=== PATIENT | male | born 1970 | race Caucasian/White ===

== ENCOUNTER 2017-06-09 18:54 | Emergency (ER) | END 2017-06-09 21:44 | disposition home or self-care (01) ==

== ENCOUNTER 2018-06-06 07:07 | Emergency (ER) | payer MEDICAID ==
[~2018-06-06] VITALS: Ht 175.3 cm; Wt 90.8 kg
[~2018-06-06 07:07] MED LIST: ACET500C5 PO; ASPI-535; BACITUD TOP; LISI-471; MECL25TA2 PO
[2018-06-06 07:11] VITALS: Ht 175.3 cm; Wt 90.8 kg
[2018-06-06 10:03] VITALS: BP 119/87; PULSE 77; RESP 18
[2018-06-06] MEDS ORDERED: SIMV10TA PO (10:39)
[2018-06-06] MEDS ORDERED: LISI10TA2 PO (10:39)
--- NOTE | 2018-06-06 11:20 | ERD ---
ER Documentation Chief Complaint Chief Complaint tingling left arm, dizziness and high blood pressure @ home HPI 47-year-old gentleman history of hypertension who presents the emergency with a multitude of different complaints. The patient states that for approximately 24 hours he has felt nonspecific paresthesias over the entirety of his body with cramping in his bilateral hands worse to the left upper extremity. He describes no significant headache or neck pain. He did describe some mild chest discomfort that was nonspecific, nonexertional, nonpleuritic. Patient states that he is feeling somewhat better recently. He denies any exertional symptoms. No significant social stressors. ROS All systems reviewed and are negative except as per history of present illness. Medications Home Meds Reported Medications Lisinopril* (Lisinopril*) 10 Mg Tablet, 10 MG PO DAILY, #30 TAB 06/06/18 Simvastatin* (Zocor*) 10 Mg Tablet, 10 MG PO QHS, #30 TAB 06/06/18 Discontinued Reported Medications Lisinopril* (Lisinopril*) 20 Mg Tablet 08/13/15 Aspirin Ec (Aspir 81) 81 Mg Tablet. 08/13/15 Discontinued Scripts Bacitracin* (Bacitracin Oint (UD)*) 1 Applic Oint, 1 APPLIC TOP ONCE for 4 Days, PKT APPLY TO Prov:LARRY CADE MD 06/09/17 Acetaminophen* (Tylophen*) 500 Mg Capsule, 1 CAP PO Q6H PRN for PAIN AND OR ELEVATED TEMP, #20 CAP Prov:NAIMA CIFUENTES NP 08/13/15 Meclizine Hcl* (Antivert*) 25 Mg Tablet, 25 MG PO Q6H PRN for DIZZINESS, #20 TAB Prov:NAIMA CIFUENTES NP 08/13/15 Allergies Allergies: Coded Allergies: No Known Allergy (Unverified , 06/06/18) PMhx/Soc History of Surgery: Yes (lower back 2009) Hx Cardiac Disorders: Yes (htn, high cholesterol ) Hx Psychiatric Problems: No Hx Miscellaneous Medical Probl: No Hx Alcohol Use: Yes (occasional) Hx Substance Use: No Hx Tobacco Use: No Smoking Status: Never smoker FmHx Family History: No diabetes, No coronary disease Physical Exam Vitals Vital Signs Date Temp Pulse Resp B/P (MAP) Pulse Ox O2 O2 Flow FiO2 Time Delivery Rate 06/06/18 77 18 119/87 98 Room Air 10:03 (98) 06/06/18 53 18 119/78 99 Room Air 08:30 (92) 06/06/18 97.5 55 18 146/86 99 07:11 (106) Physical Exam General: Well developed, well nourished, no acute distress Head: Normocephalic, atraumatic. Eyes: Pupils equally reactive, EOM intact ENT: Moist mucous membranes Neck: Supple, no lymphadenopathy Respiratory: Lungs clear bilaterally, no distress Cardiovascular: RRR, no murmurs, rubs, or gallops Abdominal: Soft, non-tender, non-distended, no peritoneal signs : Deferred MSK: No edema, no unilateral swelling, 5/5 strength Neurologic: Alert and oriented, moving all extremities, normal speech, no focal weakness, no cerebellar signs Skin: No rash Psych: Normal mood Result Diagram: 06/06/18 0735 06/06/18 0735 Results 24 hrs Laboratory Tests Test 06/06/18 07:35 06/06/18 10:22 White Blood Count 6.9 10^3/ul Red Blood Count 4.79 10^6/ul Hemoglobin 14.8 g/dl Hematocrit 43.8 % Mean Corpuscular Volume 91.4 fl Mean Corpuscular Hemoglobin 30.9 pg Mean Corpuscular Hemoglobin Concent 33.8 g/dl Red Cell Distribution Width 13.2 % Platelet Count 210 10^3/UL Mean Platelet Volume 10.5 fl Immature Granulocytes % 0.100 % Neutrophils % 55.5 % Lymphocytes % 34.9 % Monocytes % 7.5 % Eosinophils % 1.4 % Basophils % 0.6 % Nucleated Red Blood Cells % 0.0 /100WBC Immature Granulocytes # 0.010 10^3/ul Neutrophils # 3.8 10^3/ul Lymphocytes # 2.4 10^3/ul Monocytes # 0.5 10^3/ul Eosinophils # 0.1 10^3/ul Basophils # 0.0 10^3/ul Nucleated Red Blood Cells # 0.0 10^3/ul Sodium Level 142 mmol/L Potassium Level 4.8 mmol/L Chloride Level 107 mmol/L Carbon Dioxide Level 28 mmol/L Anion Gap 7 Blood Urea Nitrogen 25 mg/dl Creatinine 0.83 mg/dl Est Glomerular Filtrat Rate mL/min > 60 mL/min Glucose Level 109 mg/dl Calcium Level 9.5 mg/dl Troponin I < 0.012 ng/ml < 0.012 ng/ml Procedures/MDM EKG, MONITORS, & DIAGNOSTIC IMAGING: EKG: I reviewed and interpreted a 12-lead EKG. Rhythm: Normal sinus rhythm ST Changes: No contiguous ST segment elevations T waves: No contiguous T wave inversions Impression: [No evidence of acute cardiac ischemia] Repeat EKG: EKG: I reviewed and interpreted a 12-lead EKG. Rhythm: Normal sinus rhythm ST Changes: No contiguous ST segment elevations T waves: No contiguous T wave inversions Impression: [No evidence of acute cardiac ischemia] Chest x-ray: I reviewed and interpreted a 1 view of the chest Mediastinum: No enlargement Cardiac silhouette: No cardiomegaly Airspace: Clear lung najera bilaterally without evidence of pneumothorax Bones: No evidence of fracture PROCEDURES: [None] LAB INTERPRETATION: Negative troponin x2 MEDICAL DECISION MAKING: The patient's history, physical exam and clinical presentation is very nonspecific without localizing symptoms. His presentation is potentially consistent with hypertensive urgency though his blood pressure here is normal. No signs or symptoms concerning for dissection. He has no migratory pain or pain to the middle of his back. He has a nonfocal exam and nonexertional symptoms. Low pretest probability for cardiac etiology. Based on the patient's clinical exam and history and risk factors, I have a much lower clinical concern for pulmonary embolism, acute aortic dissection, pneumothorax, pneumonia, cardiac tamponade HEART Score: Less than 3 MACE Rate: Less than 1.7% Shared Decision Making: We had a conversation regarding risk stratification, MACE rate, and the risks, benefits, alternatives of disposition planning options. Disposition planning: Serial troponin and outpatient follow-up ER COURSE: * Patient continues to be well-appearing in the emergency room setting. Patient does take daily aspirin and had aspirin earlier today. He denies any fevers chills or pleuritic pain. The patient had serial troponins that are negative. * Given that the patient remains well-appearing in the emergency room setting, low pretest probability and low risk profile, negative troponin x2 with observation for greater than 3 hours the patient can be safely discharged with outpatient follow-up. CONSULTATION: [None] DISPOSITION PLAN: The patient does not have an identifiable emergent medical condition that warrants inpatient hospitalization at this time. The patient is deemed safe for discharge with outpatient follow-up. We discussed follow up with the patient's primary care doctor within 24 to 48 hours as needed. We also discussed return to the emergency room for worsening symptoms or worsening condition. Outpatient referral: Cardiology referral via PMD as needed Discharge Medications: Continue daily aspirin Departure Diagnosis: Primary Impression: Paresthesia Additional Impression: Chest pain Chest pain type: unspecified Qualified Codes: R07.9 - Chest pain, unspecified Condition: Stable Patient Instructions: Chest Pain, Uncertain Cause, Paraesthesias Referrals: [facility] Usted se godoy hecho un examen mdico de control que le indica que no est en leoncio condicin que requiera tratamiento urgente en el Departamento de Emergencia. Un estudio ms profundo y el tratamiento de gregorio condicin pueden esperar sin ningn riesgo hasta que usted sea atendida/o en el consultorio de gregorio mdico o leoncio clnica. Es responsabilidad suya arreglar leoncio ewelina para el seguimiento del khloe. MANEJO DE CONDICIONES NO URGENTES EN EL FUTURO 1) Si usted tiene un mdico de atencin primaria: Usted debera llamar a gregorio mdico de atencin primaria antes de venir al departamento de emergencia. Despus de las horas de consultorio, gregorio doctor o gregorio asociado/a est disponible por telfono. El mdico o enfermero de hari en el servicio telefnico puede asesorarle por elisa medio para atender el problema, o khloe contrario se puede programar leoncio ewelina. 2) Si usted no tiene un mdico de atencin primaria: Llame al mdico o clnica de referencia que aparece abajo trish las horas de consultorio para hacer leoncio ewelina para que le vean. CLINICAS: [facility] 155 [phone] [id number] [facility] 558 [phone] [address] [facility] 193 [phone] [facility] [phone] [place] [id number] [phone] [facility]. [phone] [address] [facility]. [facility] () Usted se godoy hecho un examen mdico de control que le indica que no est en leoncio condicin que requiera tratamiento urgente en el Departamento de Emergencia. Un estudio ms profundo y el tratamiento de gregorio condicin pueden esperar sin ningn riesgo hasta que usted sea atendida/o en el consultorio de gregorio mdico o leoncio cln ica. Es responsabilidad suya arreglar leoncio ewelina para el seguimiento del khloe. MANEJO DE CONDICIONES NO URGENTES EN EL FUTURO 1) Si usted tiene un mdico de atencin primaria: Usted debera llamar a gregorio mdico de atencin primaria antes de venir al departamento de emergencia. Despus de las horas de consultorio, gregorio doctor o gregorio asociado/a est disponible por telfono. El mdico o enfermero de hari en el servicio telefnico puede asesorarle por elisa medio para atender el problema, o khloe contrario se puede programar leoncio ewelina. 2) Si usted no tiene un mdico de atencin primaria: Llame al mdico o condado institucions de referencia que aparece abajo trish las horas de consultorio para hacer leoncio ewelina para que le vean. SI USTED NO PUEDE PAGAR PARA SALONI UN MEDICO puede ir a: [facility] [address] [place] [address] [facility] [address] [place] [address] [facility] [address] [place] [address] [facility] [address] [address] Additional Instructions: Llame al doctor nombrado abajo (Referral Sources) MAANA y mikey leoncio EWELINA PARA DENTRO DE LEONCIO SEMANA. Dgale a la secretaria que nosotros le instruimos hacer esta ewelina.Avise o llame si gregorio condicin se empeora antes de la ewelina. KAIDEN CURRAN MD Jun 06, 2018 11:20
== END 2018-06-06 11:33 | disposition home or self-care (01) ==
LOC: E/R 07:07
DX: R20.2 Paresthesia of skin (principal); R07.9 Chest pain, unspecified; I10 Essential (primary) hypertension
CPT/HCPCS: 36415; 71045; 80048; 84484; 85025; 93005; Z7502

== ENCOUNTER 2018-06-30 02:18 | Inpatient (IN) | payer MEDICAID ==
[~2018-06-30] VITALS: Ht 177.8 cm; Wt 86.4 kg
[~2018-06-30 02:18] MED LIST changes: -ACET500C5 PO; -ASPI-535; -BACITUD TOP; -LISI-471; +LISI10TA2 PO; -MECL25TA2 PO; +SIMV10TA PO
[2018-06-30] MEDS ORDERED: SOD CHLORIDE 0.9% 1,000 ML IV STA (03:25)
--- NOTE | 2018-06-30 03:41 | ERD ---
ER Documentation Chief Complaint Chief Complaint CP, SOB, L ARM NUMBNESS, DIAPHARETIC X'S 1 HOUR HPI 47-year-old male who presents to the emergency room complaining of syncope. History is provided by patient. He states that he got up to go to the bathroom at night. He states that after the bathroom he started to walk in the hallway and started to have generalized weakness and collapsed to the ground with possible LOC. He denies head trauma or. He states that he got up and took several steps and had another collapse that was very similar without significant prodrome. Positive LOC. No head trauma. The patient has had approximately 1 to 2 weeks of mild epigastric abdominal discomfort. He denies any chest pain or pressure. No prodrome of headache chest pain or shortness of breath. Patient had an episode of diaphoresis after this event that is now resolved. Patient has no complaints currently. ROS All systems reviewed and are negative except as per history of present illness. Medications Home Meds Reported Medications Lisinopril* (Lisinopril*) 10 Mg Tablet, 10 MG PO DAILY, #30 TAB 06/06/18 Simvastatin* (Zocor*) 10 Mg Tablet, 10 MG PO QHS, #30 TAB 06/06/18 Allergies Allergies: Coded Allergies: No Known Allergy (Unverified , 06/06/18) PMhx/Soc History of Surgery: Yes (lower back 2009) Hx Cardiac Disorders: Yes (htn, high cholesterol ) Hx Psychiatric Problems: No Hx Miscellaneous Medical Probl: No Hx Alcohol Use: Yes (occasional) Hx Substance Use: No Hx Tobacco Use: No Smoking Status: Never smoker FmHx Family History: No diabetes Physical Exam Vitals Vital Signs Date Temp Pulse Resp B/P (MAP) Pulse Ox O2 O2 Flow FiO2 Time Delivery Rate 06/30/18 96.7 70 22 113/66 100 Room Air 03:38 (82) 06/30/18 96.7 72 22 108/72 100 02:23 (84) Physical Exam General: Well developed, well nourished, no acute distress Head: Normocephalic, atraumatic. Eyes: Pupils equally reactive, EOM intact ENT: Moist mucous membranes Neck: Supple, no lymphadenopathy Respiratory: Lungs clear bilaterally, no distress Cardiovascular: RRR, no murmurs, rubs, or gallops Abdominal: Soft, non-tender, non-distended, no peritoneal signs : Deferred MSK: No edema, no unilateral swelling, 5/5 strength Neurologic: Alert and oriented, moving all extremities, normal speech, no focal weakness, no cerebellar signs Skin: No rash Psych: Normal mood Result Diagram: 06/30/185 06/30/185 Results 24 hrs Laboratory Tests Test 06/30/18 03:35 White Blood Count 11.3 10^3/ul Red Blood Count 3.41 10^6/ul Hemoglobin 10.7 g/dl Hematocrit 31.8 % Mean Corpuscular Volume 93.3 fl Mean Corpuscular Hemoglobin 31.4 pg Mean Corpuscular Hemoglobin Concent 33.6 g/dl Red Cell Distribution Width 13.2 % Platelet Count 223 10^3/UL Mean Platelet Volume 11.1 fl Immature Granulocytes % 2.200 % Neutrophils % 66.4 % Lymphocytes % 22.9 % Monocytes % 7.6 % Eosinophils % 0.4 % Basophils % 0.5 % Nucleated Red Blood Cells % 0.2 /100WBC Immature Granulocytes # 0.250 10^3/ul Neutrophils # 7.5 10^3/ul Lymphocytes # 2.6 10^3/ul Monocytes # 0.9 10^3/ul Eosinophils # 0.1 10^3/ul Basophils # 0.1 10^3/ul Nucleated Red Blood Cells # 0.0 10^3/ul Sodium Level 138 mmol/L Potassium Level 4.2 mmol/L Chloride Level 107 mmol/L Carbon Dioxide Level 26 mmol/L Anion Gap 5 Blood Urea Nitrogen 65 mg/dl Creatinine 0.62 mg/dl Est Glomerular Filtrat Rate mL/min > 60 mL/min Glucose Level 136 mg/dl Calcium Level 9.0 mg/dl Troponin I < 0.012 ng/ml Current Medications Medications Dose Sig/Be Start Time Status Last (Trade) Ordered Route PRN Stop Time Admin Dose Reason Admin Sodium 1,000 ml @ Q1H STAT 06/30/18 DC 06/30/18 Chloride 1,000 mls/hr IV 03:25 06/30/18 03:41 04:24 IV Flush 3 ml PER 06/30/18 UNV (NS 3 ml) PROTOCOL IV 05:00 Ondansetron 4 mg Q6H PRN 06/30/18 UNV HCl (Zofran PO 05:00 Tab) NAUSEA/VOMITI NG 1 tab Q5M PRN 06/30/18 UNV Nitroglycerin SL .CHEST 05:00 PAIN (Nitroglyceri n (Sl Tab) 0.4 Mg) 650 mg Q6H PRN 06/30/18 UNV Acetaminophen PO .PAIN 1-3 05:00 (Tylenol OR TEMP Tab) Docusate 100 mg Q12H PRN 06/30/18 UNV Sodium PO 05:00 (Colace) .CONSTIPATION Bisacodyl 5 mg DAILY PRN 06/30/18 UNV (Dulcolax) PO 05:00 .CONSTIPATION Al 30 ml Q4H PRN 06/30/18 UNV Hydrox/Mg PO 05:00 Hydrox/Simeth GASTROINTESTI icone NAL UPSET (Mag-Al Plus) 40 mg DAILY@06 06/30/18 UNV Pantoprazole PO 06:00 (Protonix Tab) Procedures/MDM EKG, MONITORS, & DIAGNOSTIC IMAGING: EKG: I reviewed and interpreted a 12-lead EKG. Rhythm: Normal sinus rhythm ST Changes: No contiguous ST segment elevations T waves: No contiguous T wave inversions Impression: [No evidence of acute cardiac ischemia] Chest x-ray: I reviewed and interpreted a 1 view of the chest Mediastinum: No enlargement Cardiac silhouette: No cardiomegaly Airspace: Clear lung najera bilaterally without evidence of pneumothorax Bones: No evidence of fracture LAB INTERPRETATION: I reviewed the laboratory testing and it shows [no evidence of acute process] MEDICAL DECISION MAKING: The patient has 2 episodes of syncope of unclear etiology. It was not as if the patient had vasovagal response as he did not have significant straining related to bathroom use. The patient had an episode of diaphoresis. He does have some mild epigastric discomfort for 1 week, consider possible subacute GI bleed but no signs or symptoms concerning for melena hematemesis no risk factors of peptic ulcer disease. Patient's epigastric abdominal pain does not seem to be cardiac in nature. However, given the patient's repeat episode of syncope, with associated diaphoresis I would recommend hospitalization for further investigation. Patient is agreeable. No evidence of traumatic injury c linically. The patient does not have any sudden onset of pain or neurologic symptoms to be suggestive of dissection. CT of the chest not indicated. ER COURSE: * Patient continues to be well-appearing and asymptomatic in the emergency room setting. Troponin is negative. Laboratory testing is reassuring. CONSULTATION: [None] DISPOSITION PLAN: Telemetry admission for evaluation of syncope with no clear etiology Accepting care team and consultations: I discussed the current laboratory data, diagnostic imaging and emergency care provided. Admitting team: Dr. Wong Admitting team indication: Insurance directed Departure Diagnosis: Primary Impression: Syncope Syncope type: unspecified Qualified Codes: R55 - Syncope and collapse Additional Impressions: Epigastric abdominal pain Diaphoresis Condition: Stable KAIDEN CURRAN MD June 30, 2018 03:40
[2018-06-30] MEDS ORDERED: NACL 0.9% 3 ML SYG IV SCH (05:00)
[2018-06-30] MEDS ORDERED: BISACODYL (EC) 5 MG TAB PO PRN (05:00)
[2018-06-30] MEDS ORDERED: ONDANSETRON 4 MG TAB PO PRN (05:00)
[2018-06-30] MEDS ORDERED: AL HYDROX/MG HYDROX/SIMETH 30 ML CUP PO PRN (05:00)
[2018-06-30] MEDS ORDERED: DOCUSATE SODIUM 100 MG CAP PO PRN (05:00)
[2018-06-30] MEDS ORDERED: NITROGLYCERIN (SL) 0.4 MG TAB SL PRN (05:00)
[2018-06-30] MEDS ORDERED: ACETAMINOPHEN 325 MG TAB PO PRN (05:00)
[2018-06-30] MEDS ORDERED: PANTOPRAZOLE (EC) 40 MG TAB PO SCH (06:00)
--- NOTE | 2018-06-30 07:18 | HP ---
Date/Time of Note Date/Time of Note DATE: 06/30/18 TIME: 07:05 Assessment/Plan VTE Prophylaxis SCD applied (from Nsg): Yes Pharmacological prophylaxis: NA/contraindicated Pharm contraindication: low risk/ambulating Lines/Catheters IV Catheter Type (from Nrsg): Saline Lock Assessment/Plan Hospital Course This is a 47-year-old male being admitted to the telemetry floor for: #1 syncope: Cardiogenic versus neurocardiogenic versus situational syncope: Patient symptoms are highly suspicious for situational syncope brought on by intense epigastric pain. Given the fact that he does have symptoms of numbness of his left arm and diaphoresis and the fact that he did pass out we will assess for cardiac causes as well. We will check cardiac enzymes x3, the first was negative. We will check an echocardiogram. Carotid Doppler. Consider cardiology consultation. #2 epigastric pain: Suspect peptic ulcer disease. Patient does have a BUN of 65. He denies any GI bleeding. Will check a stool occult blood. Given that he does have tenderness to palpation I will check a CT of the abdomen and pelvis without contrast. Will consult GI. Will give a trial of p.o. Mylanta, IV Protonix #3 normocytic anemia: Patient's hemoglobin is 11, he does have an elevated BUN of 65 with a normal creatinine. There is concern for possible occult bleed. Will check a stool occult blood. #4 hypertension: Continue lisinopril #5 hyperlipidemia: Continue statin #6 DVT GI prophylaxis: SCDs, no GI prophylaxis indicated Further treatment strategy will be implemented as per the clinical course. Result Diagram: 06/30/18 0335 06/30/18 0335 Results 24hrs Laboratory Tests Test 06/30/18 03:35 White Blood Count 11.3 #H Red Blood Count 3.41 #L Hemoglobin 10.7 #L Hematocrit 31.8 #L Mean Corpuscular Volume 93.3 Mean Corpuscular Hemoglobin 31.4 Mean Corpuscular Hemoglobin Concent 33.6 Red Cell Distribution Width 13.2 Platelet Count 223 Mean Platelet Volume 11.1 H Immature Granulocytes % 2.200 H Neutrophils % 66.4 Lymphocytes % 22.9 Monocytes % 7.6 Eosinophils % 0.4 Basophils % 0.5 Nucleated Red Blood Cells % 0.2 H Immature Granulocytes # 0.250 H Neutrophils # 7.5 Lymphocytes # 2.6 Monocytes # 0.9 Eosinophils # 0.1 Basophils # 0.1 Nucleated Red Blood Cells # 0.0 Sodium Level 138 Potassium Level 4.2 Chloride Level 107 Carbon Dioxide Level 26 Anion Gap 5 Blood Urea Nitrogen 65 H Creatinine 0.62 Est Glomerular Filtrat Rate mL/min > 60 Glucose Level 136 Calcium Level 9.0 Troponin I < 0.012 HPI/ROS Admit Date/Time Admit Date/Time Hx of Present Illness Chief complaint: Abdominal pain x2 weeks, syncopal episode This is a 47-year-old male who presented to the emergency department after having 2 syncopal episodes. Patient reports that he has been dealing with abdominal pain ultimately 2 weeks. He stated that yesterday he got up to go to the bathroom and he ended up having severe abdominal pain and he ended up fainting. This episode happened to him twice last night. He states that both episodes occurred after he had abdominal pain. He points to his epigastric area for his pain is. He does report that when he has the epigastric pain he also f eels numbness in his left arm, but he denies any chest pain. Reports that he eats a lot of spicy foods and he does drink alcohol on occasion. He also eats fried foods. None allergies: NKDA Medications: Lisinopril, simvastatin ROS Const: As per HPI Eyes : No pain discharge or redness or change in visual acuity ENT: No pain, sore throat, congestion, congestion, dysphagia or discharge Respiratory: No shortness of breath, cough, sputum, wheezing, or pleuritic pain Cardiovascular: No chest pain, palpitation, PND, or edema GI : HPI Genitourinary: No dysuria, hematuria, flank pain , discharge or CVA tenderness Musculoskeletal: No joint pain, back pain, neck pain, restricted range of motion in neck or joints Skin: No rash, bruising or hives Neuro: As per HPI Endocrine: No polyuria, polydipsia, temperature intolerance Psych: No hallucination, depression, anxiety or suicidal ideation PMH/Family/Social Past Medical History Hypertension, hyperlipidemia Medications Current Medications IV Flush (NS 3 ml) 3 ml PER PROTOCOL IV ; Start 06/30/18 at 05:00 Ondansetron HCl (Zofran Tab) 4 mg Q6H PRN PO NAUSEA/VOMITING; Start 06/30/18 at 05:00 Nitroglycerin (Nitroglycerin (Sl Tab) 0.4 Mg) 1 tab Q5M PRN SL .CHEST PAIN; Start 06/30/18 at 05:00 Acetaminophen (Tylenol Tab) 650 mg Q6H PRN PO .PAIN 1-3 OR TEMP; Start 06/30/18 at 05:00 Docusate Sodium (Colace) 100 mg Q12H PRN PO .CONSTIPATION; Start 06/30/18 at 05:00 Bisacodyl (Dulcolax) 5 mg DAILY PRN PO .CONSTIPATION; Start 06/30/18 at 05:00 Al Hydrox/Mg Hydrox/Simethicone (Mag-Al Plus) 30 ml Q4H PRN PO GASTROINTESTINAL UPSET; Start 06/30/18 at 05:00 Pantoprazole (Protonix Tab) 40 mg DAILY@06 PO Last administered on 06/30/18at 05:43; Admin Dose 40 MG; Start 06/30/18 at 06:00 Coded Allergies: No Known Allergy (Unverified , 06/06/18) Past Surgical History Lumbar surgery Social History Alcohol Use: occasionally Smoking Status: Never smoker Drug Use: none Exam/Review of Systems Vital Signs Vitals Vital Signs Date Temp Pulse Resp B/P (MAP) Pulse Ox O2 O2 Flow FiO2 Time Delivery Rate 06/30/18 79 18 123/79 97 Room Air 06:21 (94) Mechanical Ventilator 06/30/18 96.7 03:38 Exam Exam General: Patient is a pleasant male currently lying in bed in no acute distress HEENT: Atraumatic, normocephalic. The pupils are equal, round and reactive. Extraocular motor are intact Neck: Supple with full range of motion. No rigidity or meningismus Chest: Nontender Lungs: Clear to auscultation bilaterally no crackles rales or wheezing Heart: Normal S1-S2, Regular rhythm and rate. No murmur, S3, or S4 Abdomen: Soft , tenderness to palpation at the epigastric region, bowel sounds are present. No guarding no rebound tenderness , No masses or organomegaly. No costovertebral temporal angle mass Extremities: Normal to inspection, no edema no cyanosis Neurologic: Normal mental status, speech normal, cranial nerves II through XII are intact, motor and sensory are intact, Additional Comments EKG Rhythm: Normal sinus rhythm ST Changes: No contiguous ST segment elevations T waves: No contiguous T wave inversions Impression: [No evidence of acute cardiac ischemia] PROCEDURE: Single view chest. CLINICAL INDICATION: Syncope TECHNIQUE: Single view of the chest was obtained COMPARISON: None FINDINGS: There is no airspace consolidation or focal infiltrate. No pleural effusion or pneumothorax. Cardiac silhouette and mediastinal contours are unremarkable. Pulmonary vasculature appears normal. Regional bones are grossly unremarkable. IMPRESSION: No evidence of active cardiopulmonary disease. RPTAT: [facility] Physician Rochelle Date Time Electronically viewed and signed by Physician Rochelle on 06/30/2018 03:56 xB/ CC: KAIDEN CURRAN MD [phone] HOLLIE GONZALEZ June 30, 2018 07:16
[2018-06-30] MEDS: LISINOPRIL 10 MG TAB PO SCH (09:35)
--- NOTE | 2018-06-30 14:45 | PN ---
Date/Time of Note Date/Time of Note DATE: 06/30/18 TIME: 14:43 Assessment/Plan VTE Prophylaxis SCD applied (from Nsg): Yes Pharmacological prophylaxis: NA/contraindicated Pharm contraindication: low risk/ambulating Lines/Catheters IV Catheter Type (from Nrsg): Saline Lock Assessment/Plan Hospital Course SUBJECTIVE: Continues to have some epigastric discomfort. OBJECTIVE: Physical Exam General: Adequately build 47-year-old male lying in bed in no apparent distress. HEENT: Normocephalic, atraumatic. Eyes: Anicteric sclerae, conjunctivae clear. ENT: Nasal septum midline, oral mucosa moist. Neck supple, no JVD noticed. Respiratory: Bilaterally clear breath sounds. No use of accessory muscles of respiration. No adventitious breath sounds. Cardiovascular: S1, S2 heard. Regular rate and rhythm Abdomen: Soft, nontender, and nondistended. Bowel sounds positive in all 4 quadrants. Genitourinary: Deferred. Extremities: No cyanosis, no clubbing, no edema. Peripheral pulses palpable. Neurologic: Cranial nerves II through XII grossly intact. The patient is awake, alert, and oriented. Skin: Normal skin turgor. No skin rashes. Labs & Vitals per chart ASSESSMENT & PLAN 47-year-old male with comorbidities including hypertension and dyslipidemia who came to the emergency room with epigastric pain and a syncopal episode. The patient was noticed to have normocytic anemia. The patient was admitted to inpatient setting for further treatment and evaluation. 1. Syncope. -Etiology unclear. -Probably contributed by underlying anemia. -Continue telemetry monitoring. -Carotid Doppler study negative for any hemodynamically significant stenosis. -Orthostatic vital signs. 2. Epigastric pain. -CT abdomen and pelvis negative for any acute findings other than stool filled colon. -Pending gastroenterology consult. 3. Normocytic anemia. -Etiology unclear. -Pending stool for OB. -Pending gastroenterology evaluation. 4. Essential hypertension. -Continue lisinopril. 5. Dyslipidemia. -Continue statins. -Fasting lipid panel satisfactory. 6. Fluids, electrolytes, and nutrition. -Clear liquid diet. 7. DVT prophylaxis. -Bilateral SCDs. 8. Plan. -Continue telemetry monitoring. -Await gastroenterology evaluation. The patient was seen in collaboration with Dr. Rain. Result Diagram: 06/30/18 0335 06/30/18 0335 Results 24hrs Laboratory Tests Test 06/30/18 03:35 06/30/18 08:35 06/30/18 13:55 White Blood Count 11.3 #H Red Blood Count 3.41 #L Hemoglobin 10.7 #L Hematocrit 31.8 #L Mean Corpuscular Volume 93.3 Mean Corpuscular Hemoglobin 31.4 Mean Corpuscular Hemoglobin Concent 33.6 Red Cell Distribution Width 13.2 Platelet Count 223 Mean Platelet Volume 11.1 H Immature Granulocytes % 2.200 H Neutrophils % 66.4 Lymphocytes % 22.9 Monocytes % 7.6 Eosinophils % 0.4 Basophils % 0.5 Nucleated Red Blood Cells % 0.2 H Immature Granulocytes # 0.250 H Neutrophils # 7.5 Lymphocytes # 2.6 Monocytes # 0.9 Eosinophils # 0.1 Basophils # 0.1 Nucleated Red Blood Cells # 0.0 Sodium Level 138 Potassium Level 4.2 Chloride Level 107 Carbon Dioxide Level 26 Anion Gap 5 Blood Urea Nitrogen 65 H Creatinine 0.62 Est Glomerular Filtrat Rate mL/min > 60 Glucose Level 136 Calcium Level 9.0 Troponin I < 0.012 < 0.012 < 0.012 Hemoglobin A1c 5.6 Creatine Kinase 31 29 Creatine Kinase Index 3.0 Pending Creatinine Kinase MB (Mass) 0.94 Pending Triglycerides Level 149 Cholesterol Level 137 LDL Cholesterol, Calculated 63 HDL Cholesterol 44 Cholesterol/HDL Ratio 3.1 Thyroid Stimulating Hormone (TSH) 0.711 Exam/Review of Systems Exam Vitals Vital Signs Date Temp Pulse Resp B/P (MAP) Pulse Ox O2 O2 Flow FiO2 Time Delivery Rate 06/30/18 61 16 112/58 97 Room Air 13:00 (76) 06/30/18 96.7 03:38 Results Results 24hrs Laboratory Tests Test 06/30/18 03:35 06/30/18 08:35 06/30/18 13:55 White Blood Count 11.3 #H Red Blood Count 3.41 #L Hemoglobin 10.7 #L Hematocrit 31.8 #L Mean Corpuscular Volume 93.3 Mean Corpuscular Hemoglobin 31.4 Mean Corpuscular Hemoglobin Concent 33.6 Red Cell Distribution Width 13.2 Platelet Count 223 Mean Platelet Volume 11.1 H Immature Granulocytes % 2.200 H Neutrophils % 66.4 Lymphocytes % 22.9 Monocytes % 7.6 Eosinophils % 0.4 Basophils % 0.5 Nucleated Red Blood Cells % 0.2 H Immature Granulocytes # 0.250 H Neutrophils # 7.5 Lymphocytes # 2.6 Monocytes # 0.9 Eosinophils # 0.1 Basophils # 0.1 Nucleated Red Blood Cells # 0.0 Sodium Level 138 Potassium Level 4.2 Chloride Level 107 Carbon Dioxide Level 26 Anion Gap 5 Blood Urea Nitrogen 65 H Creatinine 0.62 Est Glomerular Filtrat Rate mL/min > 60 Glucose Level 136 Calcium Level 9.0 Troponin I < 0.012 < 0.012 < 0.012 Hemoglobin A1c 5.6 Creatine Kinase 31 29 Creatine Kinase Index 3.0 Pending Creatinine Kinase MB (Mass) 0.94 Pending Triglycerides Level 149 Cholesterol Level 137 LDL Cholesterol, Calculated 63 HDL Cholesterol 44 Cholesterol/HDL Ratio 3.1 Thyroid Stimulating Hormone (TSH) 0.711 Medications Medication Current Medications IV Flush (NS 3 ml) 3 ml PER PROTOCOL IV ; Start 06/30/18 at 05:00 Ondansetron HCl (Zofran Tab) 4 mg Q6H PRN PO NAUSEA/VOMITING; Start 06/30/18 at 05:00 Nitroglycerin (Nitroglycerin (Sl Tab) 0.4 Mg) 1 tab Q5M PRN SL .CHEST PAIN; Start 06/30/18 at 05:00 Acetaminophen (Tylenol Tab) 650 mg Q6H PRN PO .PAIN 1-3 OR TEMP; Start 06/30/18 at 05:00 Docusate Sodium (Colace) 100 mg Q12H PRN PO .CONSTIPATION; Start 06/30/18 at 05:00 Bisacodyl (Dulcolax) 5 mg DAILY PRN PO .CONSTIPATION; Start 06/30/18 at 05:00 Al Hydrox/Mg Hydrox/Simethicone (Mag-Al Plus) 30 ml Q4H PRN PO GASTROINTESTINAL UPSET; Start 06/30/18 at 05:00 Lisinopril (Zestril) 10 mg DAILY PO Last administered on 06/30/18at 09:35; Admin Dose 10 MG; Start 06/30/18 at 09:00 Atorvastatin Calcium (Lipitor) 10 mg DAILY@21 PO ; Start 06/30/18 at 21:00 Pantoprazole (Protonix Iv) 40 mg DAILY@06 IV ; Start 07/01/18 at 06:00 DREA ARRIOLA NP June 30, 2018 14:45
--- NOTE | 2018-06-30 15:38 | CONS ---
Assessment/Plan Assessment/Plan Hospital Course (Demo Recall) Summary Assessment and Plan: Assessment: Normocytic anemia with elevated BUN Epigastric pain Melena Syncope to several episodes -Troponin x3- -Carotid Doppler study without significant reasons for syncope Dyslipidemia Plan: Continue PPI Clear liquid diet today NPO after 0800 07/01/18 EGD tomorrow Endoscopy - risks/benefits/alternatives/indications of procedure and sedation/anesthesia discussed with patient who states understanding and gives informed consent to proceed. Patient seen in collaboration with Dr. Negron CC: PAULA NEGRON MD ; Consultation Date/Type/Reason Admit Date/Time Date of Consultation: June 30, 2018 Type of Consult GI Reason for Consultation Epigastric pain, normocytic anemia Date/Time of Note DATE: 06/30/18 TIME: 15:34 Hx of Present Illness This is a 47-year-old male past medical history of high cholesterol who had x2 episodes of syncope resented to the hospital for further work-up. With initial lab values patient noted to have mild leukocytosis WBC 11.3, hemoglobin 10.7, hematocrit 31.8, MCV 93.3 with an elevated BUN of 65. Cardiac work-up has been ordered patient with negative cardiac enzymes and troponin x3- additionally a chest CT was obtained showing no evidence of active cardiopulmonary disease and a carotid Doppler study was completed showing no evidence of hemodynamically significant stenosis in the bilateral internal carotid arteries. Further evaluation patient states he did have melena noted today states he has been having epigastric pain on and off x1 week and he denies NSAID use, smoking cigarettes, or excessive alcohol use. Discussed plan for clear liquid diet today n.p.o. after 8 AM tomorrow to proceed with the EGD tomorrow afternoon. I reviewed risk/benefits of both procedure and sedation patient verbalized understanding is agreeable to move forward with EGD Review of Systems: A 12 system, review was conducted and is negative except as noted in the HPI or here. Past Medical History Home Meds Reported Medications Lisinopril* (Lisinopril*) 10 Mg Tablet, 10 MG PO DAILY, #30 TAB 06/06/18 Simvastatin* (Zocor*) 10 Mg Tablet, 10 MG PO QHS, #30 TAB 06/06/18 Medications Current Medications IV Flush (NS 3 ml) 3 ml PER PROTOCOL IV ; Start 06/30/18 at 05:00 Ondansetron HCl (Zofran Tab) 4 mg Q6H PRN PO NAUSEA/VOMITING; Start 06/30/18 at 05:00 Nitroglycerin (Nitroglycerin (Sl Tab) 0.4 Mg) 1 tab Q5M PRN SL .CHEST PAIN; Start 06/30/18 at 05:00 Acetaminophen (Tylenol Tab) 650 mg Q6H PRN PO .PAIN 1-3 OR TEMP; Start 06/30/18 at 05:00 Docusate Sodium (Colace) 100 mg Q12H PRN PO .CONSTIPATION; Start 06/30/18 at 05:00 Bisacodyl (Dulcolax) 5 mg DAILY PRN PO .CONSTIPATION; Start 06/30/18 at 05:00 Al Hydrox/Mg Hydrox/Simethicone (Mag-Al Plus) 30 ml Q4H PRN PO GASTROINTESTINAL UPSET; Start 06/30/18 at 05:00 Lisinopril (Zestril) 10 mg DAILY PO Last administered on 06/30/18at 09:35; Admin Dose 10 MG; Start 06/30/18 at 09:00 Atorvastatin Calcium (Lipitor) 10 mg DAILY@21 PO ; Start 06/30/18 at 21:00 Pantoprazole (Protonix Iv) 40 mg DAILY@06 IV ; Start 07/01/18 at 06:00 Allergies: Coded Allergies: No Known Allergy (Unverified , 06/06/18) Social History Alcohol Use: occasionally Smoking Status: Never smoker Drug Use: none Exam/Review of Systems Exam Vitals Vital Signs Date Temp Pulse Resp B/P (MAP) Pulse Ox O2 O2 Flow FiO2 Time Delivery Rate 06/30/18 96.7 66 16 107/62 97 Room Air 14:00 (77) Constitutional: alert, oriented Psych: no complaints, nl mood/affect Head: normocephalic, atraumatic Eyes: nl conjunctiva ENMT: nl external ears & nose, nl lips & teeth Neck: supple Respiratory: clear to auscultation, normal air movement Cardiovascular: regular rate and rhythm, nl pulses Gastrointestinal: soft, bowel sounds, tender (Epigastric) Musculoskeletal: nl extremities to inspection Extremities: normal pulses Results Result Diagram: 06/30/18 0335 06/30/18 0335 Results 24hrs Laboratory Tests Test 06/30/18 03:35 06/30/18 08:34 06/30/18 08:35 06/30/18 13:55 White Blood Count 11.3 #H Red Blood Count 3.41 #L Hemoglobin 10.7 #L Hematocrit 31.8 #L Mean Corpuscular Volume 93.3 Mean Corpuscular 31.4 Hemoglobin Mean Corpuscular 33.6 Hemoglobin Concent Red Cell Distribution 13.2 Width Platelet Count 223 Mean Platelet Volume 11.1 H Immature Granulocytes % 2.200 H Neutrophils % 66.4 Lymphocytes % 22.9 Monocytes % 7.6 Eosinophils % 0.4 Basophils % 0.5 Nucleated Red Blood 0.2 H Cells % Immature Granulocytes # 0.250 H Neutrophils # 7.5 Lymphocytes # 2.6 Monocytes # 0.9 Eosinophils # 0.1 Basophils # 0.1 Nucleated Red Blood 0.0 Cells # Sodium Level 138 Potassium Level 4.2 Chloride Level 107 Carbon Dioxide Level 26 Anion Gap 5 Blood Urea Nitrogen 65 H Creatinine 0.62 Est Glomerular Filtrat > 60 Rate mL/min Glucose Level 136 Calcium Level 9.0 Troponin I < 0.012 < 0.012 < 0.012 Iron Level 101 Total Iron Binding 286 Capacity Percent Iron Saturation 35 Hemoglobin A1c 5.6 Creatine Kinase 31 29 Creatine Kinase Index 3.0 2.6 Creatinine Kinase MB 0.94 0.75 (Mass) Triglycerides Level 149 Cholesterol Level 137 LDL Cholesterol, 63 Calculated HDL Cholesterol 44 Cholesterol/HDL Ratio 3.1 Thyroid Stimulating 0.711 Hormone (TSH) Medications Medication Current Medications IV Flush (NS 3 ml) 3 ml PER PROTOCOL IV ; Start 06/30/18 at 05:00 Ondansetron HCl (Zofran Tab) 4 mg Q6H PRN PO NAUSEA/VOMITING; Start 06/30/18 at 05:00 Nitroglycerin (Nitroglycerin (Sl Tab) 0.4 Mg) 1 tab Q5M PRN SL .CHEST PAIN; S tart 06/30/18 at 05:00 Acetaminophen (Tylenol Tab) 650 mg Q6H PRN PO .PAIN 1-3 OR TEMP; Start 06/30/18 at 05:00 Docusate Sodium (Colace) 100 mg Q12H PRN PO .CONSTIPATION; Start 06/30/18 at 05:00 Bisacodyl (Dulcolax) 5 mg DAILY PRN PO .CONSTIPATION; Start 06/30/18 at 05:00 Al Hydrox/Mg Hydrox/Simethicone (Mag-Al Plus) 30 ml Q4H PRN PO GASTROINTESTINAL UPSET; Start 06/30/18 at 05:00 Lisinopril (Zestril) 10 mg DAILY PO Last administered on 06/30/18at 09:35; Admin Dose 10 MG; Start 06/30/18 at 09:00 Atorvastatin Calcium (Lipitor) 10 mg DAILY@21 PO ; Start 06/30/18 at 21:00 Pantoprazole (Protonix Iv) 40 mg DAILY@06 IV ; Start 07/01/18 at 06:00 MATEO KELLY June 30, 2018 15:38
[2018-06-30 16:30] VITALS: PULSE 67
[2018-06-30 18:33] VITALS: Ht 177.8 cm; Wt 86.4 kg
[2018-06-30 18:35] VITALS: BP 103/64; PULSE 65; RESP 18
--- NOTE | 2018-06-30 18:38 | RADRPT ---
Echocardiogram Report Patient Name: Javier TOUREnt ID: [id number] : 1970 (47y 8m)Study Date: 06/30/2018 2:33:13 PM Gender: Chantalecession #: [id number] Tech: LE Location: Ref.Physician: HOLLIE GONZALEZ Height(Cm): BSA: Weight(Kg): Quality: GoodAccount #: Procedures: Echocardiographic Report: Transthoracic echocardiogram with complete 2D, M-Mode, and doppler examination. Indications: Syncope. Measurements: 2D/M Mode Doppler Measurement Value Normal Range Measurement Value Normal Range LVIDd 2D 5.2 [ 4.2 - 5.8 ] cm AV Mean Ramon 1.1 [ 70.0 - 90.0 ] cm/sec LVIDs 2D 3.5 [ 2.5 - 4.0 ] cm AV Mean PG 5.0 [ 2.0 - 4.0 ] mmHg LVPWd 2D 1.1 [ 0.6 - 1.0 ] cm AV Peak Ramon 1.5 [ 100.0 - 170.0 ] cm/sec IVSd 2D 1.1 [ 0.6 - 1.0 ] cm AV Peak PG 9.0 [ 2.0 - 9.0 ] mmHg EDV 2D 128.0 [ 62.0 - 150.0 ] ml AV VTI 28.1 cm ESV 2D 49.8 [ 21.0 - 61.0 ] ml LVOT Peak Ramon 1.1 [ 70.0 - 110.0 ] cm/sec EF 2D 61.1 [ 52.0 - 72.0 ] percent LVOT Peak PG 4.0 [ 2.0 - 6.0 ] mmHg LVOT Diam 2.1 [ 2.3 - 2.9 ] cm MV E Peak Ramon 0.6 [ 60.0 - 130.0 ] cm/sec MV A Peak Ramon 0.6 [ 100.0 - 120.0 ] cm/sec MV E/A 1.0 [ 0.8 - 1.5 ] ratio MV Decel Time 299 [ 104 - 258 ] msec Lat E` Ramon 0.1 [ 10.0 - 15.0 ] cm/sec Lateral E/E` 7.9 [ 1.0 - 2.0 ] ratio Med E` Ramon 0.1 cm/sec MV E/A 1.0 [ 0.8 - 1.5 ] ratio TR Peak Ramon 2.1 [ 100.0 - 280.0 ] cm/sec TR Peak PG 17.0 mmHg PV Peak Ramon 1.0 [ 40.0 - 80.0 ] cm/sec PV Peak PG 4.0 mmHg Findings: Left Ventricle: Normal left ventricular systolic function. Normal left ventricular cavity size. Normal left ventricular wall thickness. Ejection fraction is visually estimated at 60 %. Tissue Doppler/Mitral Doppler indices are consistent with pseudonormalization with mildly elevated left atrial pressure (Stage II diastolic dysfunction). Right Ventricle: Normal right ventricular size. Normal right ventricular systolic function. Left Atrium: The left atrium is normal in size. Right Atrium: The right atrium is normal in size. Mitral Valve: Normal appearance and function of the mitral valve with trace physiologic regurgitation. Aortic Valve: Normal appearance of the aortic valve. No significant aortic stenosis or insufficiency. Tricuspid Valve: Normal appearance of the tricuspid valve. There is trace tricuspid regurgitation. Pulmonic Valve: Normal pulmonic valve appearance. Pericardium: Normal pericardium with no significant pericardial effusion. Aorta: Normal aortic root. IVC: Normal size and normal respiratory collapse consistent with normal right atrial pressure. Conclusions: Normal left ventricular systolic function. Normal left ventricular cavity size. Normal left ventricular wall thickness. Ejection fraction is visually estimated at 60 %. Tissue Doppler/Mitral Doppler indices are consistent with pseudonormalization with mildly elevated left atrial pressure (Stage II diastolic dysfunction). Normal appearance and function of the mitral valve with trace physiologic regurgitation. Normal appearance of the tricuspid valve. There is trace tricuspid regurgitation. Electronically Signed By: Rinuk Sandoval 2018-06-30 18:37:27 PDT
[2018-06-30 20:00] VITALS: BP 102/56; RESP 18
[2018-06-30 20:40] VITALS: PULSE 67
[2018-06-30] MEDS ORDERED: NON-FORMULARY/PATIENT OWN MED (Simvastatin* (Zocor*) 10 MG) PO SCH (21:00)
[2018-06-30] MEDS: ATORVASTATIN 10 MG TAB PO SCH (21:04)
[2018-07-01] VITALS (15 sets, daily range): BP systolic 92–120; BP diastolic 54–73; PULSE 58–110; RESP 16–18
[2018-07-01] MEDS: PANTOPRAZOLE 40 MG INJ IV SCH (05:42)
--- NOTE | 2018-07-01 10:06 | PN ---
Date/Time of Note Date/Time of Note DATE: 07/01/18 TIME: 10:04 Assessment/Plan VTE Prophylaxis Risk score (from Ns)>0 risk: 2 SCD applied (from Ns): Yes Pharmacological prophylaxis: NA/contraindicated Pharm contraindication: low risk/ambulating Lines/Catheters IV [facility] Peripheral IV Assessment/Plan Hospital Course SUBJECTIVE: Continues to have some epigastric discomfort. OBJECTIVE: Physical Exam General: Adequately build 47-year-old male lying in bed in no apparent distress. HEENT: Normocephalic, atraumatic. Eyes: Anicteric sclerae, conjunctivae clear. ENT: Nasal septum midline, oral mucosa moist. Neck supple, no JVD noticed. Respiratory: Bilaterally clear breath sounds. No use of accessory muscles of respiration. No adventitious breath sounds. Cardiovascular: S1, S2 heard. Regular rate and rhythm Abdomen: Soft, nontender, and nondistended. Bowel sounds positive in all 4 quadrants. Genitourinary: Deferred. Extremities: No cyanosis, no clubbing, no edema. Peripheral pulses palpable. Neurologic: Cranial nerves II through XII grossly intact. The patient is awake, alert, and oriented. Skin: Normal skin turgor. No skin rashes. Labs & Vitals per chart ASSESSMENT & PLAN 47-year-old male with comorbidities including hypertension and dyslipidemia who came to the emergency room with epigastric pain and a syncopal episode. The patient was noticed to have normocytic anemia. The patient was admitted to in patient setting for further treatment and evaluation. 1. Syncope. -Etiology unclear. -Probably contributed by underlying anemia. -Continue telemetry monitoring. -Carotid Doppler study negative for any hemodynamically significant stenosis. -2D echocardiogram showing preserved left ventricular ejection fraction. -Orthostatic vital signs. 2. Epigastric pain. -CT abdomen and pelvis negative for any acute findings other than stool filled colon. -Gastroenterology following. -Plan for esophagogastroduodenoscopy today. 3. Normocytic anemia. -Etiology unclear. -Pending stool for OB. -Pending esophagogastroduodenoscopy. 4. Essential hypertension. -Continue lisinopril. 5. Dyslipidemia. -Continue statins. -Fasting lipid panel satisfactory. 6. Fluids, electrolytes, and nutrition. -Clear liquid diet. 7. DVT prophylaxis. -Bilateral SCDs. 8. Plan. -Continue telemetry monitoring. -Await esophagogastroduodenoscopy. The patient was seen in collaboration with Dr. Rain. Result Diagram: 07/01/18 0551 07/01/18 0551 Results 24hrs Laboratory Tests Test 06/30/18 13:55 07/01/18 05:51 Creatine Kinase 29 Creatine Kinase Index 2.6 Creatinine Kinase MB (Mass) 0.75 Troponin I < 0.012 White Blood Count 8.5 # Red Blood Count 2.93 L Hemoglobin 9.1 L Hematocrit 27.0 L Mean Corpuscular Volume 92.2 Mean Corpuscular Hemoglobin 31.1 Mean Corpuscular Hemoglobin Concent 33.7 Red Cell Distribution Width 13.8 Platelet Count 194 Mean Platelet Volume 10.6 H Immature Granulocytes % 1.400 H Neutrophils % 64.6 Lymphocytes % 27.1 Monocytes % 6.1 Eosinophils % 0.4 Basophils % 0.4 Nucleated Red Blood Cells % 0.0 Immature Granulocytes # 0.120 H Neutrophils # 5.5 Lymphocytes # 2.3 Monocytes # 0.5 Eosinophils # 0.0 Basophils # 0.0 Nucleated Red Blood Cells # 0.0 Prothrombin Time 13.1 Prothrombin Time Ratio 1.0 INR International Normalized Ratio 0.98 Activated Partial Thromboplast Time 23.0 Sodium Level 140 Potassium Level 4.4 Chloride Level 109 Carbon Dioxide Level 26 Anion Gap 5 Blood Urea Nitrogen 26 #H Creatinine 0.68 Est Glomerular Filtrat Rate mL/min > 60 Glucose Level 98 Calcium Level 9.1 Phosphorus Level 3.7 Magnesium Level 2.2 Total Bilirubin 0.6 Direct Bilirubin 0.00 Indirect Bilirubin 0.6 Aspartate Amino Transf (AST/SGOT) 21 Alanine Aminotransferase (ALT/SGPT) 34 Alkaline Phosphatase 49 Total Protein 5.7 L Albumin 3.2 L Globulin 2.50 Albumin/Globulin Ratio 1.28 Exam/Review of Systems Exam Vitals Vital Signs Date Temp Pulse Resp B/P (MAP) Pulse Ox O2 O2 Flow FiO2 Time Delivery Rate 07/01/18 64 08:18 07/01/18 98.7 17 105/57 98 Room Air 07:39 (73) Results Results 24hrs Laboratory Tests Test 06/30/18 13:55 07/01/18 05:51 Creatine Kinase 29 Creatine Kinase Index 2.6 Creatinine Kinase MB (Mass) 0.75 Troponin I < 0.012 White Blood Count 8.5 # Red Blood Count 2.93 L Hemoglobin 9.1 L Hematocrit 27.0 L Mean Corpuscular Volume 92.2 Mean Corpuscular Hemoglobin 31.1 Mean Corpuscular Hemoglobin Concent 33.7 Red Cell Distribution Width 13.8 Platelet Count 194 Mean Platelet Volume 10.6 H Immature Granulocytes % 1.400 H Neutrophils % 64.6 Lymphocytes % 27.1 Monocytes % 6.1 Eosinophils % 0.4 Basophils % 0.4 Nucleated Red Blood Cells % 0.0 Immature Granulocytes # 0.120 H Neutrophils # 5.5 Lymphocytes # 2.3 Monocytes # 0.5 Eosinophils # 0.0 Basophils # 0.0 Nucleated Red Blood Cells # 0.0 Prothrombin Time 13.1 Prothrombin Time Ratio 1.0 INR International Normalized Ratio 0.98 Activated Partial Thromboplast Time 23.0 Sodium Level 140 Potassium Level 4.4 Chloride Level 109 Carbon Dioxide Level 26 Anion Gap 5 Blood Urea Nitrogen 26 #H Creatinine 0.68 Est Glomerular Filtrat Rate mL/min > 60 Glucose Level 98 Calcium Level 9.1 Phosphorus Level 3.7 Magnesium Level 2.2 Total Bilirubin 0.6 Direct Bilirubin 0.00 Indirect Bilirubin 0.6 Aspartate Amino Transf (AST/SGOT) 21 Alanine Aminotransferase (ALT/SGPT) 34 Alkaline Phosphatase 49 Total Protein 5.7 L Albumin 3.2 L Globulin 2.50 Albumin/Globulin Ratio 1.28 Medications Medication Current Medications IV Flush (NS 3 ml) 3 ml PER PROTOCOL IV ; Start 06/30/18 at 05:00 Ondansetron HCl (Zofran Tab) 4 mg Q6H PRN PO NAUSEA/VOMITING; Start 06/30/18 at 05:00 Nitroglycerin (Nitroglycerin (Sl Tab) 0.4 Mg) 1 tab Q5M PRN SL .CHEST PAIN; Start 06/30/18 at 05:00 Acetaminophen (Tylenol Tab) 650 mg Q6H PRN PO .PAIN 1-3 OR TEMP; Start 06/30/18 at 05:00 Docusate Sodium (Colace) 100 mg Q12H PRN PO .CONSTIPATION; Start 06/30/18 at 05:00 Bisacodyl (Dulcolax) 5 mg DAILY PRN PO .CONSTIPATION; Start 06/30/18 at 05:00 Al Hydrox/Mg Hydrox/Simethicone (Mag-Al Plus) 30 ml Q4H PRN PO GASTROINTESTINAL UPSET; Start 06/30/18 at 05:00 Lisinopril (Zestril) 10 mg DAILY PO Last administered on 06/30/18at 09:35; Admin Dose 10 MG; Start 06/30/18 at 09:00 Atorvastatin Calcium (Lipitor) 10 mg DAILY@21 PO Last administered on 06/30/18at 21:04; Admin Dose 10 MG; Start 06/30/18 at 21:00 Pantoprazole (Protonix Iv) 40 mg DAILY@06 IV Last administered on 07/01/18at 05:42; Admin Dose 40 MG; Start 07/01/18 at 06:00 DREA ARRIOLA NP July 01, 2018 10:06
--- NOTE | 2018-07-01 15:31 | PREAC ---
Date/Time of Note Date/Time of Note DATE: 07/01/18 TIME: 15:31 Anesthesia Eval and Record Evaluation Time Pre-Procedure Interview DATE: 07/01/18 TIME: 15:31 Age 47 Sex male NPO: 8 hrs Preoperative diagnosis epigastric pain Planned procedure EGD Past Medical History Past Medical History: Includes Cardio: HTN, Dyslipidemia Surgery & Anesthesia Issues No known issue Meds Anticoagulation: No Beta Clarence within 24 hr: No Reason Beta Clarence not given: Pt. not on B-Clarence Reported Medications Lisinopril* (Lisinopril*) 10 Mg Tablet, 10 MG PO DAILY, #30 TAB 06/06/18 Simvastatin* (Zocor*) 10 Mg Tablet, 10 MG PO QHS, #30 TAB 06/06/18 Current Medications IV Flush (NS 3 ml) 3 ml PER PROTOCOL IV ; Start 06/30/18 at 05:00 Ondansetron HCl (Zofran Tab) 4 mg Q6H PRN PO NAUSEA/VOMITING; Start 06/30/18 at 05:00 Nitroglycerin (Nitroglycerin (Sl Tab) 0.4 Mg) 1 tab Q5M PRN SL .CHEST PAIN; Start 06/30/18 at 05:00 Acetaminophen (Tylenol Tab) 650 mg Q6H PRN PO .PAIN 1-3 OR TEMP; Start 06/30/18 at 05:00 Docusate Sodium (Colace) 100 mg Q12H PRN PO .CONSTIPATION; Start 06/30/18 at 05:00 Bisacodyl (Dulcolax) 5 mg DAILY PRN PO .CONSTIPATION; Start 06/30/18 at 05:00 Al Hydrox/Mg Hydrox/Simethicone (Mag-Al Plus) 30 ml Q4H PRN PO GASTROINTESTINAL UPSET; Start 06/30/18 at 05:00 Lisinopril (Zestril) 10 mg DAILY PO Last administered on 06/30/18at 09:35; Admin Dose 10 MG; Start 06/30/18 at 09:00 Atorvastatin Calcium (Lipitor) 10 mg DAILY@21 PO Last administered on 06/30/18at 21:04; Admin Dose 10 MG; Start 06/30/18 at 21:00 Pantoprazole (Protonix Iv) 40 mg DAILY@06 IV Last administered on 07/01/18at 05:42; Admin Dose 40 MG; Start 07/01/18 at 06:00 Meds reviewed: Yes Allergies Coded Allergies: No Known Allergy (Unverified , 06/06/18) Allergies Reviewed: Yes Labs/Studies Labs Reviewed: Reviewed by anesthesiologist Result Diagram: 07/01/18 0551 07/01/18 0551 Laboratory Tests 07/01/18 05:51 test: N/A Pre-procedure Exam Last vitals Vital Signs Date Temp Pulse Resp B/P (MAP) Pulse Ox O2 O2 Flow FiO2 Time Delivery Rate 07/01/18 98.1 62 18 109/66 97 Room Air 14:25 (80) 07/01/18 07:39 Airway: Adequate mouth opening, Adequate thyromental dist Mallampati: Mallampati II Teeth: Normal Lung: Normal Heart: Normal ASA Physical Status ASA physical status: 2 Emergency: None Planned Anesthetic General/MAC: Mask Planned Pain Management Parenteral pain med Pre-operative Attestations Prior to commencing anesthesia and surgery, the patient was re-evaluated, there was verification of: *The patient's identity *The results of appropriate recent lab work and preoperative vital signs *The above evaluation not changing prior to induction *Anesthetic plan, risk benefits, alternative and complications discussed with patient/family; questions answered; patient/family understands, accepts and wishes to proceed. JAMES HERNANDEZ MD July 01, 2018 15:31
[2018-07-01] MEDS ORDERED: PROPOFOL 20 ML ONE (15:38)
[2018-07-01] MEDS ORDERED: LIDOCAINE 2% (SDV) 5 ML INJ ONE (15:38)
--- NOTE | 2018-07-01 15:50 | HPN ---
Date/Time of Note Date/Time of Note DATE: 07/01/18 TIME: 15:50 Interval H&P Admission Note Pt. seen H&P reviewed: No system changes ELADIO COOPER July 01, 2018 15:50
--- NOTE | 2018-07-01 15:57 | PAC ---
Date/Time of Note Date/Time of Note DATE: 07/01/18 TIME: 15:55 Post-Anesthesia Notes Post-Anesthesia Note Last documented vital signs Vital Signs Date Temp Pulse Resp B/P (MAP) Pulse Ox O2 O2 Flow FiO2 Time Delivery Rate 07/01/18 98.1 62 18 109/66 97 Room Air 14:25 (80) 07/01/18 07:39 Activity: WNL Respiratory function: WNL Cardiovascular function: WNL Mental status: Baseline Pain reasonably controlled: Yes Hydration appropriate: Yes Nausea/Vomiting absent: Yes Comments BP: 113/72 HR: 68 RR: 15 T: 98 SaO2: 100% JAMES HERNANDEZ MD July 01, 2018 15:57
[2018-07-01] MEDS ORDERED: ONDANSETRON 4 MG INJ IV PRN (16:00)
[2018-07-01] MEDS ORDERED: HYDROmorphONE 1 MG/5 ML IV SYRINGE IV PRN ×2 (16:00)
[2018-07-01] MEDS ORDERED: MEPERIDINE 25 MG INJ IV PRN (16:00)
[2018-07-01] MEDS ORDERED: DIPHENHYDRAMINE 50 MG INJ IV PRN (16:00)
[2018-07-01] MEDS ORDERED: FENTAnyl 50 MCG/ML VIAL IV PRN (16:00)
[2018-07-01] MEDS: LISINOPRIL 10 MG TAB PO SCH (17:43)
[2018-07-01] MEDS: ATORVASTATIN 10 MG TAB PO SCH (20:44)
[2018-07-02] VITALS (14 sets, daily range): BP systolic 11–119; BP diastolic 56–66; PULSE 59–118; RESP 16–20
[2018-07-02] MEDS: PANTOPRAZOLE 40 MG INJ IV SCH (05:18)
[2018-07-02] MEDS: LISINOPRIL 10 MG TAB PO SCH (08:37)
--- NOTE | 2018-07-02 13:28 | PN ---
Date/Time of Note Date/Time of Note DATE: 07/02/18 TIME: 13:26 Objective Vitals Vital Signs Date Temp Pulse Resp B/P (MAP) Pulse Ox O2 O2 Flow FiO2 Time Delivery Rate 07/02/18 67 12:10 07/02/18 98.5 18 101/56 97 Room Air 11:35 (71) 07/01/18 07:39 Intake and Output 07/01/18 07/01/18 07/02/18 1515:00 23:00 07:00 IntakeIntake Total 400 ml 600 ml 500 ml OutputOutput Total 500 ml BalanceBalance -100 ml 600 ml 500 ml Results Result Diagram: 07/02/18 0602 07/02/18 0602 Medications Medications Current Medications IV Flush (NS 3 ml) 3 ml PER PROTOCOL IV ; Start 06/30/18 at 05:00 Ondansetron HCl (Zofran Tab) 4 mg Q6H PRN PO NAUSEA/VOMITING; Start 06/30/18 at 05:00 Nitroglycerin (Nitroglycerin (Sl Tab) 0.4 Mg) 1 tab Q5M PRN SL .CHEST PAIN; Start 06/30/18 at 05:00 Acetaminophen (Tylenol Tab) 650 mg Q6H PRN PO .PAIN 1-3 OR TEMP; Start 06/30/18 at 05:00 Docusate Sodium (Colace) 100 mg Q12H PRN PO .CONSTIPATION; Start 06/30/18 at 05:00 Bisacodyl (Dulcolax) 5 mg DAILY PRN PO .CONSTIPATION; Start 06/30/18 at 05:00 Al Hydrox/Mg Hydrox/Simethicone (Mag-Al Plus) 30 ml Q4H PRN PO GASTROINTESTINAL UPSET; Start 06/30/18 at 05:00 Lisinopril (Zestril) 10 mg DAILY PO Last administered on 07/02/18at 08:37; Admin Dose 10 MG; Start 06/30/18 at 09:00 Atorvastatin Calcium (Lipitor) 10 mg DAILY@21 PO Last administered on 07/01/18at 20:44; Admin Dose 10 MG; Start 06/30/18 at 21:00 Pantoprazole (Protonix Tab) 40 mg BID@06,18 PO ; Start 07/02/18 at 18:00 Sucralfate (Carafate Susp) 1 gm QID PO ; Start 07/02/18 at 13:00 VTE Prophylaxis Risk score (from Ns)>0 risk: 1 SCD applied (from Ns): No SCD contraindication: other Lines/Catheters IV Catheter Type: Correia in Place: No Assessment/Plan Hospital Course Subjective Patient feeling a lot better today Objective Physical exam General: Patient is laying in bed and answers questions appropriately Mentation: Patient is alert and oriented 4, Head: Normocephalic atraumatic Eyes: EOMI, pupils reactive to light Neck: Supple, nontender, midline Respiratory: Clear to auscultation bilaterally Cardiovascular: regular rate, no obvious murmurs Gastrointestinal: minimally-tender to palpation, bowel sounds heard. Neurological: Moves all extremities spontaneously Skin: No new skin lesions ASSESSMENT & PLAN 47-year-old male with comorbidities including hypertension and dyslipidemia who came to the emergency room with epigastric pain and a syncopal episode. The patient was noticed to have normocytic anemia. The patient was admitted to inpatient setting for further treatment and evaluation. 1. Syncope. Resolved -Etiology unclear. Very likely secondary to pain from epigastric pain -Probably contributed by underlying anemia. -Continue telemetry monitoring. -Carotid Doppler study negative for any hemodynamically significant stenosis. -2D echocardiogram showing preserved left ventricular ejection fraction. -Orthostatic vital signs. Negative for orthostatic hypotension -CT head pending 2. Epigastric pain. Resolving -CT abdomen and pelvis negative for any acute findings other than stool filled colon. -Gastroenterology following. -EGD found non-bleeding ulcer, PPI twice daily, Carafate 4 times daily 3. Normocytic anemia. -Etiology unclear.. -Gastric ulcer present likely some combination of gastric ulcer bleeding in the past however no active bleeding currently 4. Essential hypertension. -Continue lisinopril. 5. Dyslipidemia. -Continue statins. -Fasting lipid panel satisfactory. 6. Fluids, electrolytes, and nutrition. -Clear liquid diet. Advance as tolerated 7. DVT prophylaxis. -Bilateral SCDs. 8. Plan. -CT brain pending, if everything stable patient's epigastric pain is better, DC tomorrow with follow-up with GI in 6 weeks. MARCIA HIGGINBOTHAM July 02, 2018 13:28
[2018-07-02] MEDS: SUCRALFATE (100 MG/ML) 10ML CUP PO SCH ×3 (13:32→20:19)
--- NOTE | 2018-07-02 15:11 | PN ---
Date/Time of Note Date/Time of Note DATE: 07/02/18 TIME: 14:57 Assessment/Plan VTE Prophylaxis Risk score (from Ns)>0 risk: 1 SCD applied (from Ns): No SCD contraindicated: low risk/ambulating Pharmacological prophylaxis: NA/contraindicated Pharm contraindication: bleeding Lines/Catheters IV Catheter Type (from [facility]): Urinary Cath still in place: No Assessment/Plan Assessment/Plan Assessment: Normocytic anemia with elevated BUN Epigastric pain Melena Status post EGD 07/01/2018 -Bleeding gastric ulcer. No specimen collected -Gastritis Syncope to several episodes -Troponin x3- -Carotid Doppler study without significant reasons for syncope Dyslipidemia Plan: Continue PPI and Carafate Check stool for H. pylori Recommend outpatient EGD in 6 to 8 weeks to assess the healing Patient seen in collaboration with Dr. Negron Subjective: Patient is feeling better. Denies abdominal pain, nausea or melena. Complaining of epigastric pain. Tolerating soft diet well. Discussed results of EGD with the patient and the family at the bedside. Emphasized the treatment regimen. Recommend repeat EGD in 6 to 8 weeks to assess the healing of gastric ulcer. PHYSICAL EXAMINATION: GENERAL: Well developed, well nourished, alert & oriented x 3, in no acute di stress SKIN: No lesions, no stigmata chronic liver disease, no evidence of bleeding diathesis LYMPHATIC: No palpable lymphadenopathy. HEAD: Normocephalic, atraumatic, no tenderness. EYES: Pupils equal reactive to light and accommodation, full extraocular movements, sclera clear, non-icteric, no discharge. EARS/NOSE AND THROAT: Ears normal, nose normal, oropharynx normal, oral membranes well hydrated without lesions. NECK: Supple, no masses, thyroid normal, JVP within normal limits, carotids norm al without bruits. CHEST: Inspection within normal limits. CARDIOVASCULAR: Heart: Regular rate and rhythm, no murmurs, gallops or rubs. Peripheral pulses present within normal limits, no cyanosis, clubbing or edemas. No pulsatile abdominal mass RESPIRATORY: Lungs clear to auscultation and percussion, no wheezing, no rubs GASTROINTESTINAL AND LIVER: Abdomen: Soft, non tenderness, non-distended, no hernias, no masses, no organomegaly, no ascites, no guarding, no rebound tenderness, normoactive bowel sounds. Rectal: Deferred. GENITOURINARY: Male genitalia within normal limits. EXTREMITIES: No cyanosis, clubbing or edema. Result Diagram: 07/02/18 0602 07/02/18 0602 Results 24hrs Laboratory Tests Test 07/02/18 06:02 White Blood Count 8.0 Red Blood Count 2.96 L Hemoglobin 9.4 L Hematocrit 27.3 L Mean Corpuscular Volume 92.2 Mean Corpuscular Hemoglobin 31.8 Mean Corpuscular Hemoglobin Concent 34.4 Red Cell Distribution Width 13.6 Platelet Count 207 Mean Platelet Volume 10.6 H Immature Granulocytes % 1.600 H Neutrophils % 62.6 Lymphocytes % 27.6 Monocytes % 7.0 Eosinophils % 0.7 Basophils % 0.5 Nucleated Red Blood Cells % 0.4 H Immature Granulocytes # 0.130 H Neutrophils # 5.0 Lymphocytes # 2.2 Monocytes # 0.6 Eosinophils # 0.1 Basophils # 0.0 Nucleated Red Blood Cells # 0.0 Sodium Level 139 Potassium Level 4.4 Chloride Level 105 Carbon Dioxide Level 27 Anion Gap 7 Blood Urea Nitrogen 25 H Creatinine 0.86 Est Glomerular Filtrat Rate mL/min > 60 Glucose Level 105 Calcium Level 9.2 Phosphorus Level 4.8 Magnesium Level 2.2 Total Bilirubin 0.6 Direct Bilirubin 0.00 Indirect Bilirubin 0.6 Aspartate Amino Transf (AST/SGOT) 28 Alanine Aminotransferase (ALT/SGPT) 39 Alkaline Phosphatase 54 Total Protein 5.9 L Albumin 3.3 Globulin 2.60 Albumin/Globulin Ratio 1.26 CC: ; Exam/Review of Systems Exam Vitals Vital Signs Date Temp Pulse Resp B/P (MAP) Pulse Ox O2 O2 Flow FiO2 Time Delivery Rate 07/02/18 67 12:10 07/02/18 98.5 18 101/56 97 Room Air 11:35 (71) 07/01/18 07:39 Intake and Output 07/01/18 07/01/18 07/02/18 1515:00 23:00 07:00 IntakeIntake Total 400 ml 600 ml 500 ml OutputOutput Total 500 ml BalanceBalance -100 ml 600 ml 500 ml Results Results 24hrs Laboratory Tests Test 07/02/18 06:02 White Blood Count 8.0 Red Blood Count 2.96 L Hemoglobin 9.4 L Hematocrit 27.3 L Mean Corpuscular Volume 92.2 Mean Corpuscular Hemoglobin 31.8 Mean Corpuscular Hemoglobin Concent 34.4 Red Cell Distribution Width 13.6 Platelet Count 207 Mean Platelet Volume 10.6 H Immature Granulocytes % 1.600 H Neutrophils % 62.6 Lymphocytes % 27.6 Monocytes % 7.0 Eosinophils % 0.7 Basophils % 0.5 Nucleated Red Blood Cells % 0.4 H Immature Granulocytes # 0.130 H Neutrophils # 5.0 Lymphocytes # 2.2 Monocytes # 0.6 Eosinophils # 0.1 Basophils # 0.0 Nucleated Red Blood Cells # 0.0 Sodium Level 139 Potassium Level 4.4 Chloride Level 105 Carbon Dioxide Level 27 Anion Gap 7 Blood Urea Nitrogen 25 H Creatinine 0.86 Est Glomerular Filtrat Rate mL/min > 60 Glucose Level 105 Calcium Level 9.2 Phosphorus Level 4.8 Magnesium Level 2.2 Total Bilirubin 0.6 Direct Bilirubin 0.00 Indirect Bilirubin 0.6 Aspartate Amino Transf (AST/SGOT) 28 Alanine Aminotransferase (ALT/SGPT) 39 Alkaline Phosphatase 54 Total Protein 5.9 L Albumin 3.3 Globulin 2.60 Albumin/Globulin Ratio 1.26 Medications Medication Current Medications IV Flush (NS 3 ml) 3 ml PER PROTOCOL IV ; Start 06/30/18 at 05:00 Ondansetron HCl (Zofran Tab) 4 mg Q6H PRN PO NAUSEA/VOMITING; Start 06/30/18 at 05:00 Nitroglycerin (Nitroglycerin (Sl Tab) 0.4 Mg) 1 tab Q5M PRN SL .CHEST PAIN; Start 06/30/18 at 05:00 Acetaminophen (Tylenol Tab) 650 mg Q6H PRN PO .PAIN 1-3 OR TEMP; Start 06/30/18 at 05:00 Docusate Sodium (Colace) 100 mg Q12H PRN PO .CONSTIPATION; Start 06/30/18 at 05:00 Bisacodyl (Dulcolax) 5 mg DAILY PRN PO .CONSTIPATION; Start 06/30/18 at 05:00 Al Hydrox/Mg Hydrox/Simethicone (Mag-Al Plus) 30 ml Q4H PRN PO GASTROINTESTINAL UPSET; Start 06/30/18 at 05:00 Lisinopril (Zestril) 10 mg DAILY PO Last administered on 07/02/18at 08:37; Admin Dose 10 MG; Start 06/30/18 at 09:00 Atorvastatin Calcium (Lipitor) 10 mg DAILY@21 PO Last administered on 07/01/18at 20:44; Admin Dose 10 MG; Start 06/30/18 at 21:00 Pantoprazole (Protonix Tab) 40 mg BID@06,18 PO ; Start 07/02/18 at 18:00 Sucralfate (Carafate Susp) 1 gm QID PO Last administered on 07/02/18at 13:32; Admin Dose 1 GM; Start 07/02/18 at 13:00 ANAND BOSTON NP July 02, 2018 15:10
[2018-07-02] MEDS: PANTOPRAZOLE (EC) 40 MG TAB PO SCH (17:21)
[2018-07-02] MEDS: ATORVASTATIN 10 MG TAB PO SCH (20:19)
[2018-07-02] MEDS ORDERED: KETOROLAC 30 MG INJ IV STA (21:28)
[2018-07-03] VITALS (8 sets, daily range): BP systolic 98–121; BP diastolic 54–77; PULSE 53–97; RESP 16–18
[2018-07-03] MEDS: PANTOPRAZOLE (EC) 40 MG TAB PO SCH (05:25)
[2018-07-03] MEDS: SUCRALFATE (100 MG/ML) 10ML CUP PO SCH ×2 (08:15→12:00)
[2018-07-03] MEDS: LISINOPRIL 10 MG TAB PO SCH (08:16)
[2018-07-03] MEDS ORDERED: SUCR1TAB56 PO (12:44)
[2018-07-03] MEDS ORDERED: PANT40TA4 PO (12:44)
--- NOTE | 2018-07-03 12:45 | PDOCDIS ---
Discharge Instructions CONDITION [id number] Patient Condition: [id number] Stable FOLLOW UP/APPOINTMENTS Follow-up Plan 1. Please follow-up with your primary care provider this week in order to get a referral to a violin tutor for repeat upper endoscopy within 2 months to evaluate for your healing gastric ulcer. 2. Please continue medications provided at discharge MARCIA HIGGINBOTHAM July 03, 2018 12:45
--- NOTE | 2018-07-03 12:48 | DS ---
Date/Time of Note Date/Time of Note DATE: 07/03/18 TIME: 12:47 Discharge Summary Admission/Discharge Info Admit Date/Time July 02, 2018 at 12:46 Discharge Date/Time Patient Condition: Stable Hospital Course Patient is a male with a past medical history significant for hypertension and dyslipidemia who presents to [facility] for epigastric pain. Patient also had episode of syncope related to the epigastric pain. CT did not show any acute issues. Syncope is likely secondary to pain. Patient's epigastric pain has now resolved, was seen by GI and received upper endoscopy which found nonbleeding gastric ulcer. Patient was provided with the appropriate medications and will be discharged to follow-up with his primary ca re provider who will provide him with a referral to a GI doctor within 2 months so he get a repeat upper endoscopy to ensure healing of gastric ulcer. Patient will be provided prescriptions on discharge. Patient also knows dietary changes he will need to do for his gastric ulcer. Patient also instructed to get H. pylori testing from his primary care provider and oyster culler. Discharge diagnosis Syncope, resolved Epigastric pain, resolved Normocytic anemia, acute versus chronic Hypertension Dyslipidemia Home Meds Active Scripts Sucralfate* (Carafate*) 1 Gm Tab, 1 GM PO QID for 30 Days, #120 TAB Prov:MARCIA HIGGINBOTHAM 07/03/18 Pantoprazole* (Pantoprazole*) 40 Mg Tablet.dr, 40 MG PO BID@06,18 for 30 Days, #60 2 Refills alternatives: 1. omeprazole 40 mg, #30 tabs, 1 tab po qam, 2 refills 2. omeprazole 20 mg, #60 tabs, 1 tab po bid, 2 refills Prov:MARCIA HIGGINBOTHAM 07/03/18 Reported Medications Lisinopril* (Lisinopril*) 10 Mg Tablet, 10 MG PO DAILY, #30 TAB 06/06/18 Simvastatin* (Zocor*) 10 Mg Tablet, 10 MG PO QHS, #30 TAB 06/06/18 Follow-up Plan 1. Please follow-up with your primary care provider this week in order to get a referral to a oyster culler for repeat upper endoscopy within 2 months to evaluate for your healing gastric ulcer. 2. Please continue medications provided at discharge Primary Care Provider Care Physician No Primary Time spent on discharge: > 30 minutes Pending Labs Laboratory Tests Test 07/03/18 06:04 White Blood Count 8.3 10^3/ul (4.8-10.8) Red Blood Count 3.03 10^6/ul (4.70-6.10) Hemoglobin 9.7 g/dl (14.0-18.0) Hematocrit 28.1 % (42.0-52.0) Mean Corpuscular Volume 92.7 fl (82.0-101.0) Mean Corpuscular Hemoglobin 32.0 pg (29.0-33.0) Mean Corpuscular Hemoglobin Concent 34.5 g/dl (32.0-37.0) Red Cell Distribution Width 14.0 % (11.5-14.5) Platelet Count 210 10^3/UL (140-415) Mean Platelet Volume 10.6 fl (7.4-10.4) Immature Granulocytes % 1.200 % (0.001-0.429) Neutrophils % 60.2 % (39.0-77.0) Lymphocytes % 29.0 % (15.0-51.0) Monocytes % 8.1 % (0.0-11.0) Eosinophils % 1.0 % (0.0-7.0) Basophils % 0.5 % (0.0-2.0) Nucleated Red Blood Cells % 0.2 /100WBC (0.0-0.0) Immature Granulocytes # 0.100 10^3/ul (0.0-0.031) Neutrophils # 5.0 10^3/ul (1.6-7.5) Lymphocytes # 2.4 10^3/ul (0.8-2.9) Monocytes # 0.7 10^3/ul (0.3-0.9) Eosinophils # 0.1 10^3/ul (0.0-0.5) Basophils # 0.0 10^3/ul (0.0-0.1) Nucleated Red Blood Cells # 0.0 10^3/ul (0.0-0.0) Sodium Level 138 mmol/L (135-144) Potassium Level 4.4 mmol/L (3.5-5.1) Chloride Level 105 mmol/L (97-110) Carbon Dioxide Level 29 mmol/L (21-31) Anion Gap 4 (5-13) Blood Urea Nitrogen 30 mg/dl (7-20) Creatinine 0.86 mg/dl (0.61-1.24) Est Glomerular Filtrat Rate mL/min > 60 mL/min (>60) Glucose Level 93 mg/dl (70-220) Calcium Level 9.0 mg/dl (8.4-10.2) Phosphorus Level 4.6 mg/dl (2.5-4.9) Magnesium Level 2.2 mg/dl (1.7-2.5) MARCIA HIGGINBOTHAM July 03, 2018 12:48
== END 2018-07-03 13:40 | disposition home or self-care (01) | DRG 384 ==
LOC: E/R 02:18 → TEL 04:37 → OBSVTOIN 07-02 12:46
PROVIDERS: ADMIT Family Medicine; ATTEND Internal Medicine
PROC: 0DJ08ZZ Inspection of Upper Intestinal Tract, Via Natural or Artificial Opening Endoscopic (ICD-10-PCS; principal; 2018-07-01 16:00)
DX: K25.3 Acute gastric ulcer without hemorrhage or perforation (principal); R55 Syncope and collapse; D64.9 Anemia, unspecified; I10 Essential (primary) hypertension; E78.5 Hyperlipidemia, unspecified; K29.70 Gastritis, unspecified, without bleeding
CPT/HCPCS: 36415; 70450; 71045; 74176; 80048; 80053; 80061; 80307; 82550; 82553; 82607; 82728; 82746; 83036; 83540; 83735; 84100; 84443; 84484; 85025; 85610; 85730; 93005; 93306; 93880; G0378; C9113; J1885; J7030